=== PATIENT | male | born 1960 | race African-American/Black ===

== ENCOUNTER 2021-01-24 07:11 | Emergency (ER) | payer MEDICARE ==
[~2021-01-24] VITALS: Ht 170.2 cm; Wt 57.1 kg
--- NOTE | ~2021-01-24 | EMS ---
[address] [address] EMS Patient Care Report Name: NAEEM RIVAS Room #: PRE ALON Aguero#: [id number] Admission: Attend Phys: Discharge: Date of : 56 Report #: [id number] THIS REPORT FOR: //name// Report Transmitted: 01/24/2021 07:11 EMS Care Summary [facility] Incident [id number] @ 01/24/2021 06:09 Incident Location [address] [place] [address] Patient NAEEM RIVAS Male, 60 Years 1960 Patient Address [address] [place] [address] Patient History Hypertension (HTN),Hyperlipidemia,Type 2 Diabetes,Myasthenia Gravis, Patient Allergies Cheese allergy, Patient Medications Gabapentin, Clopidogrel, Hydrocodone, Diazepam, Atorvastatin, Cyclobenzaprine, Carvedilol, Finasteride, ASA, Chief Complaint Hypoglycemim Disposition Transported No Lights/[place] Reason Unconscious/Fainting Transported To [facility] Narrative [id number] dispatched C1 to [facility] for syncope. [address] [address] EMS Patient Care Report Name: NAEEM RIVAS Room #: PRE ER M.R.#: [id number] Admission: Attend Phys: Discharge: Date of : 56 Report #: [id number] Upon arrival pt found lying supine in bed, unresponsive, breathing nonlabored, tended to by OPFD. OPFD states that when they arrived on scene they were told that the pt blood sugar was 39 and then all the facility staff left. OPFD states that the pt has a current blood sugar of 20. Pt woke up a few times and stated that he wanted some water and moved his extremities around. In order to get IV access lead lightly held pt extremities still. After multiple unsuccessful IVs tech administered Glucagon IM. Staff states that they have no hospital preference on file for the pt so just take him to the closest open hospital. Pt lifted to cot. During transport pt blood sugar slowly increased and the pt began to wake up. Pt condition and vitals monitored enroute. Pt care transferred in Er room 11. Initial Vitals @PTAP: 89,R: 20,BP: 176/82,Glucose: 20,SpO2: 94, @06:54P: 81,R: 16,GCS: 12,EtCO2: 30,SpO2: 94, @06:50P: 82,R: 18,BP: 117/69,GCS: 12,Temp: 98.3F,Glucose: 72,SpO2: 97,Revised Trauma: 11, @07:05P: 77,R: 16,BP: 113/64,GCS: 13,Glucose: 109,EtCO2: 29,SpO2: 96,Revised Trauma: 12, Impression Diabetic Hypoglycemia Procedures @06:22Saline Lock cc (20 ga) Site: Hand-RightResponse: UnchangedFailed@06:22Saline Lock cc (20 ga) Site: Forearm-LeftResponse: UnchangedFailed@06:26Saline Lock cc (20 ga) Site: Hand-LeftResponse: UnchangedFailed@06:24Saline Lock cc (18 ga) Site: Forearm-RightResponse: UnchangedFailed@06:40Glucagon - 1 Milligrams (mg) - Intramuscular (IM)Response: Improved@07:01Surgical Mask on PatientResponse: Unchanged Timeline WEB APPLICATIONS ARCHITECT,BP: 176/82 M,PULSE: 89,RR: 20 R,SPO2: 94 Ox,ETCO2: ,B,PAIN: ,GCS: , 06:08,Call Received 06:08,Psap Call 06:09,Dispatched 06:11,En Route [facility] [address] [place] [address] EMS Patient Care Report Name: NAEEM RIVAS Room #: PRE ER M.R.#: [id number] Admission: Attend Phys: Discharge: Date of : 56 Report #: [id number] 06:18,On Scene 06:21,At Patient 06:22,Saline Lock cc 20 ga Site: Hand-Right,Response: UnchangedFailed, 06:22,Saline Lock cc 20 ga Site: Forearm-Left,Response: UnchangedFailed, 06:24,Saline Lock cc 18 ga Site: Forearm-Right,Response: UnchangedFailed, 06:26,Saline Lock cc 20 ga Site: Hand-Left,Response: UnchangedFailed, 06:40,Glucagon - 1 Milligrams (mg) - Intramuscular (IM),Response: Improved 06:50,BP: 117/69 M,PULSE: 82,RR: 18 R,SPO2: 97 Ox,ETCO2: ,B,PAIN: ,GCS: 12, 06:54,BP: / M,PULSE: 81,RR: 16 R,SPO2: 94 Ox,ETCO2: 30 ,BG: ,PAIN: ,GCS: 12, 06:56,Depart Scene 07:01,Surgical Mask on Patient,Response: Unchanged 07:05,BP: 113/64 M,PULSE: 77,RR: 16 R,SPO2: 96 Ox,ETCO2: 29 ,B,PAIN: ,GCS: 13, 07:08,At Destination 07:35,Call Closed Disclaimer v1.1 Copyright 2020 [employer] This EMS Care Summary contains data elements from the applicable legal record (which may be displayed differently). It is designed to provide pertinent information for the following purposes: continuity of care, clinical quality, and state data reporting. The complete legal record is available to ED staff and administrators of the receiving hospital in [employer]s Patient Tracker. All data is provided "as is."
[2021-01-24 07:47] LABS: CALCIUM 8.5 mg/dL (8.5-10.1); CREATININE 1.1 mg/dL (0.7-1.3); POTASSIUM 3.6 mmol/L (3.5-5.1)
[2021-01-24 08:47] LABS: ABSOLUTE NEUTROPHILS 4.9 thou/uL (1.4-8.2); BASOPHILS 0.6 % (0.0-2.0); EOSINOPHILS 0.1 % (0.0-3.0); HEMATOCRIT 26.1 % (42.0-52.0); HEMOGLOBIN 8.4 gm/dL (14.0-18.0); MCH 29.8 pg (26.0-34.0); MCHC 32.3 g/dL (28.0-37.0); MCV 92.2 fL (80.0-100.0); MONOCYTES 10.4 % (1.0-8.0); PLATELET COUNT 227 thou/uL (150-400); POLYS 84.9 % (36.0-66.0); RBC 2.83 mil/uL (4.50-6.00); RDW 16.2 % (10.5-14.5); WBC 5.8 thou/uL (4.0-11.0)
--- NOTE | 2021-01-24 11:48 | EKG ---
[place] [address] [facility] [place] [address] ELECTROCARDIOGRAM REPORT Name: NAEEM RIVAS Room #: REG ALON Aguero#: [id number] Admission: 01/24/21 Attend Phys: Discharge: Date of : 56 Report #: [id number] [facility] ED Test Date: 2021-01-24 Test Time: 07:18:51 Pat Name: NAEEM RIVAS Department: Room: Gender: M [employer] Soup: IG : 1960 Requested By: Stephan Jeffries Order Number: [id number] MD: Omid Moreno Measurements Intervals [place] Rate: 75 P: 71 MN: 155 QRS: 8 QRSD: 101 T: 247 QT: 449 QTc: 502 Interpretive Statements Sinus rhythm Probable left atrial enlargement LVH with secondary repolarization abnormality Baseline wander in lead(s) V5,V6 No previous ECG available for comparison Electronically Signed On 01-24-2021 11:48:16 CDT by Omid Moreno [email or web address] <ELECTRONICALLY SIGNED> By: Omid Moreno MD, MERGED WITH [facility] 01/24/21 1148 0718 7 Omid Moreno MD, FACC /EPI
[2021-01-24 12:10] VITALS: BP 133/69
== END 2021-01-24 12:10 ==
LOC: ER 07:11
PROVIDERS: Emergency Medicine
DX: E11.649 Type 2 diabetes mellitus with hypoglycemia without coma (principal); Z20.822 Contact with and (suspected) exposure to COVID-19; I10 Essential (primary) hypertension; E78.5 Hyperlipidemia, unspecified; Z95.1 Presence of aortocoronary bypass graft; Z91.018 Allergy to other foods